=== PATIENT | female | born 1960 | race Caucasian/White ===

== ENCOUNTER → 2017-07-12 | Outpatient (CLI) | payer BC ==
--- NOTE | 2017-07-12 11:48 | DIAGNOSTIC IMAGING REPORT ---
BILATERAL KNEES 4 VIEWS CLINICAL HISTORY: B/L KNEE PAIN COMPARISON STUDY: None. FINDINGS: No fracture or dislocation within the right or left knee. Soft tissues are unremarkable. No knee effusions. Mild varus angulation of the bilateral knees. Mild cartilage space narrowing within the medial compartments. IMPRESSION: Mild varus angulation of the bilateral knees with mild cartilage space narrowing within the medial compartments. Electronically signed by: Guido Machuca M.D. 07/12/2017 11:46 AM Dictated Date/Time: 07/12/2017 11:44 AM
== END | disposition home or self-care (01) ==
LOC: C.RDSM 17:26
PROVIDERS: ATTEND Family Medicine
DX: M25.561 Pain in right knee (principal)

== ENCOUNTER → 2017-08-23 | Outpatient (CLI) | payer BC | END | disposition home or self-care (01) | LOC: C.PAPS 14:22 | PROVIDERS: ATTEND Obstetrics & Gynecology | DX: Z01.419 Encounter for gynecological examination (general) (routine) without abnormal findings (principal) ==

== ENCOUNTER → 2017-10-01 | Outpatient (CLI) | payer BC ==
--- NOTE | 2017-10-04 14:33 | MAMMOGRAPHY REPORT ---
BILATERAL DIGITAL SCREENING MAMMOGRAM TOMOSYNTHESIS WITH CAD: 10/01/2017 CLINICAL HISTORY: Routine screening. Patient has no complaints. TECHNIQUE: Breast tomosynthesis in addition to standard 2D mammography was performed. Current study was also evaluated with a Computer Aided Detection (CAD) system. COMPARISON: Comparison is made to exams dated: 06/29/2014 mammogram, 03/01/2013 ultrasound, 03/01/2013 mammogram, 02/21/2013 mammogram - [facility], and 08/26/2007. BREAST COMPOSITION: There are scattered areas of fibroglandular density in both breasts. FINDINGS: No suspicious masses, calcifications, or areas of architectural distortion are noted in ei ther breast. There has been no significant interval change compared to prior exams. IMPRESSION: ACR BI-RADS CATEGORY 1: NEGATIVE There is no mammographic evidence of malignancy. A 1 year screening mammogram is recommended. The pa tient will receive written notification of the results. Approximately 10% of breast cancers are not detected with mammography. A negative mammographic report should not delay biopsy if a clinically suggestive mass is present. Sandhya Tang M.D. ah/:10/01/2017 14:20:40 Lift Mechanic: Theodora Acuna, [facility] letter sent: Normal 1/2 BI-RADS Code: ACR BI-RADS Category 1: Negative
== END | disposition home or self-care (01) ==
LOC: C.MAMM 12:03
PROVIDERS: ATTEND Obstetrics & Gynecology
DX: Z12.31 Encounter for screening mammogram for malignant neoplasm of breast (principal)